=== PATIENT | female | born 1985 | race Caucasian/White ===

== ENCOUNTER → 2022-10-31 | Outpatient (CLI) | payer MEDICAID, SELFPAY ==
--- NOTE | 2022-10-31 | EMB_PTH ---
PATIENT: JULIÁN BOYD LOC: [facility] U#:[id number] AGE/SX: 37/F ROOM: RE10/31/[address]: Dr. Mamta Larson DO : 1985 BED: DIS: 10/31/2022 SPEC #: [id number] RECD: 10/31/22 13:05 STATUS: SHANNAN REMilad #: [id number] DOMENICO: 10/31/22 00:[address]: Mamta Larson DEPT: SURGICAL PATHOLOGY RECD BY: Silvestre Rondon ENTERED: 10/31/22 13:05 SP TYPE: ENDOM BX/C OLGA DR: No Primary Care Phys Tissues: Endometrium, NOS Procedures: Surgery Specimen Level IV HEADER OPERATION: Endometrial biopsy PRE-OP DIAGNOSIS: Abnormal uterine bleeding N93.9 TISSUE SUBMITTED: Endometrial biopsy MICROSCOPIC DIAGNOSIS Endometrial biopsy: Scant fragments of benign endometrial tissue, benign endocervical epithelium and mucous. See comment. TIFFANIE:susan 11/01/2022 COMMENT The specimen predominantly consists of mucoid tissue. The specimen is insufficient for further evaluation. Clinical correlation and appropriate follow up are necessary. MICROSCOPIC DESCRIPTION Slides are reviewed. GROSS DESCRIPTION Received in fixative is one container labeled with the patient's name and designated endometrial biopsy. The specimen consists of multiple fragments of hemorrhagic mucoid tissue that in aggregate measure 1.5 x 1.5 x 0.1 cm. The specimen is totally submitted in one cassette. / SJ:susan 10/31/2022 TC: Cannot code CPT: 72081
[2022-11-04 14:08] LABS: HPV APTIMA, High Risk Negative (Negative)
== END | disposition home or self-care (01) ==
PROVIDERS: Referring Provider Student in an Organized Health Care Education/Training Program; Visit Provider Student in an Organized Health Care Education/Training Program
DX: N93.9 Abnormal uterine and vaginal bleeding, unspecified (principal)
CPT/HCPCS: 87624; 88175; 88305; G0145

== ENCOUNTER 2023-01-04 09:22 | Day surgery (SDC) | payer MEDICAID, SELFPAY ==
[2023-01-01 16:51] LABS: Hematocrit 40.4 % (37-47); Hemoglobin 13.6 g/dL (12.0-15.0); Mean Corp Hgb Conc 33.7 g/dL (32-36); Mean Corpuscular Hgb 32.2 pg (27.0-32.0); Mean Corpuscular Volume 95.7 fL (81-99); Mean Platelet Vol. 9.3 fl (6.2-12.0); Platelet Count 234 K/mm3 (150-450); RBC Distribution Width CV 11.9 % (11.6-14.6); RBC Distribution Width SD 41.5 fl (35.1-43.9); Red Blood Count 4.22 M/mm3 (4.2-5.4); White Blood Count 7.4 K/mm3 (4.4-11.0)
[2023-01-04 09:43] VITALS: BP 119/84; PULSE 75; RESP 16; TEMP 36.5; O2SAT 100; BMI 26.5
[2023-01-04 09:47] LABS: Internal QC Validated? YES +Cl - CLEAR BKGD; Pregnancy, Urine Negative Negative
[2023-01-04] MEDS: Lactated Ringers 1,000 ML 15 ML IV (09:52)
--- NOTE | 2023-01-04 10:00 | HP.PCM.OB_ITS ---
History and Physical Date of Admission: 01/04/23 HPI: 37-year-old female with abnormal uterine bleeding plan for hysteroscopy, dilation curettage, endometrial ablation, laparoscopic tubal ligation.? Denies headache or vision changes, chest pain or shortness of breath, nausea or vomiting, diarrhea constipation, fevers or chills. 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 None Medications: 1.? Claritin Surgical history: 1. LEEP in 2019 2. [place] tooth extraction Family history: No history of blood clots or bleeding disorders, noncontributory Social history: Denies tobacco, alcohol, drug use Allergies: vicodin Review of system: Negative otherwise stated above Physical exam Vital signs: Blood pressure 119/84, heart rate 75, respiratory rate 16, temp 97.7 ?F, oxygen saturation 100% on room air General: No acute distress HEENT: Normal cephalic/atraumatic, PERRLA Cardiorespiratory: No increased effort, regular rate and rhythm, clear to auscultation bilaterally Abdomen: Soft, nontender Extremity: No edema Neurologic: Cranial nerves II through XII grossly intact, no focal deficits Musculoskeletal: Moves all extremities equally Assessment and plan: 37-year-old female with abnormal uterine bleeding plan for hysteroscopy, dilation curettage, endometrial ablation, laparoscopic tubal li gation.? All risk, benefits, alternatives discussed with the patient.? Risk include but are not limited to: Risk of bleeding the point transfusion, infection, injury to surrounding tissue including bowel/bladder requiring prolonged Raphael catheter use/major abdominal vessels, VTE, ICU admission.? Patient aware and consented.
--- NOTE | 2023-01-04 10:03 | PCM.OPRPT ---
Report of Operation Date of Procedure: 01/04/23 Pre-Operative Diagnosis: Abnormal uterine bleeding, desires permanent sterilization Post-Operative Diagnosis: Abnormal uterine bleeding, desires permanent sterilization Surgery/Procedure Performed:: Cervical dilation, cervical polypectomy, hysteroscopy, laparoscopic bilateral salpingectomy Description of Surgical Findings:: Normal-appearing external genitalia. Small cervical polyp. Minimal uterine descensus. On hysteroscopy: thickened endometrial lining, fundal uterine perforation. On laparoscopy: Normal-appearing bilateral fallopian tubes and ovaries. Fundal perforation, no active bleeding. Right fundal/cornual leiomyoma. Minimal fluid in pelvis secondary to hysteroscopy. Normal-appearing bowel, inspected thoroughly. Surgeon: Mamta Larson commercial lines underwriter: Clint Bustos Type of Anesthesia: General Specimen's removed: Bilateral fallopian tubes, cervical polyp Estimated Blood Loss (mL): 5 cc Fluids Replaced: 1000 cc Description of Procedure: Indication/risk/benefits:37-year-old female with abnormal uterine bleeding plan for hysteroscopy, dilation curettage, endometrial ablation, laparoscopic tubal ligation.? All risk, benefits, alternatives discussed with the patient.? Risk include but are not limited to: Risk of bleeding the point transfusion, infection, injury to surrounding tissue including bowel/bladder requiring prolonged Raphael catheter use/major abdominal vessels, VTE, ICU admission.? Understands risk of regret of tubal ligation. To notify if she becomes due to risk of ectopic . Patient aware and consented. Procedure: Patient was taken to the operating room placed under general anesthesia. Patient was placed in the dorsal lithotomy position and prepped and draped in the usual sterile fashion. Weighted speculum placed in posterior vagina and Franklin retractor used to visualize the cervix. Anterior lip of the cervix grasped with Allis clamp. Cervix sequentially dilated. Uterus sounded. Cervical polyp grasped with polyp forceps and removed. Hysteroscope placed through the cervical canal and fundal uterine perforation noted on inspection along with other findings noted above. Due to perforation, ablation and curettage cannot be completed safely. Hysteroscope removed. Sargis manipulator placed. Allis clamp removed. Gloves were changed and attention turned to the anterior abdominal wall. Infraumbilical incision made with scalpel and trocar placed under direct visualization. Abdomen insufflated. Right and left lower quadrant trocars placed (5 mm on the left and 8 mm on the right. Pelvis inspected with findings above. Left fallopian tube grasped at the fimbriated end and removed along mesosalpinx to the level of the cornua. Fallopian tube removed through the 8 mm trocar. Right fallopian tube grasped at the fimbriated end and removed to the cornua, removed through the 8 mm trocar. Mesosalpinx bilaterally were hemostatic. Fundal perforation hemostatic. Floseal placed along the fundal perforation. Fluid in the pelvis was suctioned. Abdomen desufflated and trocars removed. Skin closed with subcuticular stitch and skin glue. Uterine manipulator and Raphael catheter removed. Cervix hemostatic. At the end of the procedure all needle, lap, sponge counts were correct. Urine output: 300 cc clear urine Of note: This patient would be a candidate for total laparoscopic hysterectomy Complications None Admit VTE Documentation VTE Mechan Device Prophylaxis: SCD's
--- NOTE | 2023-01-04 11:03 | CER_PTH ---
PATIENT: JULIÁN BOYD LOC: [facility] U#:[id number] AGE/SX: 37/F ROOM: RE01/04/[address]: Dr. Mamta Larson DO : 1985 BED: DIS: 01/04/2023 SPEC #: [id number] RECD: 01/04/23 12:46 STATUS: SHANNAN REQ #: [id number] DOMENICO: 01/04/23 11:[address]: Mamta Larson DEPT: SURGICAL PATHOLOGY RECD BY: Gabby Becker ENTERED: 01/04/23 13:24 SP TYPE: CERV OTHR DR: Yissel Trimble, WE[employer]ING [employer]ER-C Tissues: A - Uterine cervix, NOS B - Fallopian tube Procedures: Surgery Specimen Level II Surgery Specimen Level IV HEADER OPERATION: Hysteroscopy, cervical polypectomy PRE-OP DIAGNOSIS: Abnormal uterine bleeding TISSUE SUBMITTED: A ? Cervical polyp, B ? Bilateral fallopian tubes MICROSCOPIC DIAGNOSIS A. Cervical polyp, biopsy: Polypoid fragment of benign cervical tissue. B. Right and left fallopian tubes, bilateral salpingectomies: Complete segments of fallopian tubes with no pathologic change. AM:susan 01/05/2023 MICROSCOPIC DESCRIPTION Slides are reviewed. GROSS DESCRIPTION A - Received in fixative is one container labeled with the patient's name and designated cervical polyp. The specimen consists of multiple irregular fragments of light pink-vazquez soft tissue that in aggregate measure 0.9 x 0.5 x 0.1 cm. The specimen is totally submitted in one cassette. B - Received in fixative is one container labeled with the patient's name and designated bilateral fallopian tubes. The specimen consists of two fallopian tubes with an average length of 4.5 cm and has an average diameter of 0.6 cm. Both fallopian tubes have normal fimbriated ends. No mass lesions are identified. Batch Blender sections are submitted in two cassettes as follows: 1 - one fallopian tube, 2??the other fallopian tube. / AM:susan 01/04/2023 TC:5 CPT: 71990, 68152 x2
[2023-01-04 12:02] VITALS: BP 119/84; BP 130/99; PULSE 96; RESP 18; TEMP 36.2; O2SAT 97
--- NOTE | 2023-01-04 12:07 | DCINST_ITS ---
Discharge Instructions Diet Discharge Diet: No restrictions Activity Discharge Activity: Return to Normal Activity and May Shower May resume sexual activity in: 2 weeks Weight Bearing Status: Weight bearing as tolerated Lifting Restrictions: No greater than 15 pounds Dressing / Incision Call your doctor if your incision/area has: Continuous Slow Oozing, Increased Pain/ Swelling, Increased Redness and Foul Smelling Discharge Call your doctor if you observe: Fever of 101 or Higher, Inability to urinate, Using more than 1 pad per hour, Shortness of breath, Chest pain, Calf discomfort and Uncontrolled pain Cleanse incision/area with: Soap & Water and Keep Dressing Clean & Dry Follow Up Care Please Follow Up With: Mamta Larson DO When: 2 weeks post operative visit. Test Results: Test results from this visit will be discussed in further detail at your follow- up appointment, if applicable. Discharge Plan Admission Primary Reason for Your Visit: Hysteroscopy, laparoscopy Attending Provider: Mamta Larson Primary Care Provider: Yissel Trimble NP Discharge Orders/Prescriptions Prescriptions: New oxycodone 5 mg tablet 5 mg PO Q6H PRN (Reason: pain (scale score 7-10)) 2 Days Qty: 4 0RF ondansetron 4 mg tablet,disintegrating 4 mg PO Q6H PRN PRN (Reason: nausea and vomiting) Qty: 30 0RF Continued loratadine [Claritin] 10 mg Tablet 10 mg PO DAILY Referrals / Follow Up: Yissel Trimble NP, STUDIO TECHNICIAN-C [Primary Care Provider] - Disposition Disposition (needs filled in before D/C Order can be placed): Home, Self Care
[2023-01-04 12:15] VITALS: BP 119/84; BP 131/83; PULSE 65; RESP 18; O2SAT 100
[2023-01-04 12:30] VITALS: BP 119/84; BP 139/86; PULSE 70; RESP 18; O2SAT 99
[2023-01-04 12:45] VITALS: BP 119/84; BP 121/79; PULSE 75; RESP 18; TEMP 36.6; O2SAT 100
[2023-01-04 13:26] VITALS: BP 119/84
== END 2023-01-04 13:33 | disposition home or self-care (01) ==
LOC: SDC 09:25 → AC 09:27
PROVIDERS: Anesthesiology; PCP Nurse Practitioner Family; Referring Provider Student in an Organized Health Care Education/Training Program; Visit Provider Student in an Organized Health Care Education/Training Program
PROC: 0U5B8ZZ Destruction of Endometrium, Via Natural or Artificial Opening Endoscopic (ICD-10-PCS; CPT 58558; principal; 2023-01-04 10:50)
PROC: (CPT 58661; 2023-01-04 10:50)
DX: Z30.2 Encounter for sterilization (principal); N93.9 Abnormal uterine and vaginal bleeding, unspecified; N84.1 Polyp of cervix uteri; N99.71 Accidental puncture and laceration of a genitourinary system organ or structure during a genitourinary system procedure; Y92.234 Operating room of hospital as the place of occurrence of the external cause
CPT/HCPCS: 58661; 58558; 00840; 36415; 81025; 85027; 86850; 86900; 86901; 88302; 88305; J7120; J2405